=== PATIENT | male | born 2000 | race Caucasian/White ===

== ENCOUNTER 2020-01-01 17:39 | Emergency (ER) | payer SELFPAY ==
[~2020-01-01] VITALS: Ht 198.1 cm; Wt 90.7 kg
[2020-01-01] MEDS ORDERED: DOXYCYCLINE HY100 MG PO (18:29)
== END 2020-01-01 19:01 | disposition home or self-care (01) ==
LOC: ED 17:39
DX: L03.116 Cellulitis of left lower limb (principal); B95.8 Unspecified staphylococcus as the cause of diseases classified elsewhere
CPT/HCPCS: 99283

== ENCOUNTER 2020-10-20 07:14 | Emergency (ER) | payer OTHER, BC ==
[~2020-10-20] VITALS: Ht 193 cm; Wt 86.2 kg
[~2020-10-20 07:14] MED LIST: DOXYCYCLINE HY100 MG PO
[2020-10-20] MEDS ORDERED: NORCO 7.5-3251 EACH PO (08:07)
== END 2020-10-20 08:15 | disposition home or self-care (01) ==
LOC: ED 07:14
DX: S82.832A Other fracture of upper and lower end of left fibula, initial encounter for closed fracture (principal); W22.8XXA Striking against or struck by other objects, initial encounter
CPT/HCPCS: 73590; 73610; 99283-25; A9270

== ENCOUNTER 2023-07-06 02:24 | Emergency (ER) | payer OTHER ==
[~2023-07-06] VITALS: Ht 193 cm; Wt 86.2 kg
--- OUTSIDE RECORDS SUMMARY | ~2023-07-06 | XMS | Continuity of Care Document ---
Demographics + + + | Address | [address] | | | [place] [address] | + + + | Preferred Language | Unknown | + + + | Marital Status | Never | + + + | Pentecostal Affiliation | Unknown | + + + | Race | White | + + + | Ethnic Group | Unknown | + + + Author + + + | Author | [facility] | + + + | Organization | [facility] | + + + | Address | [address] | | | [place] [address] | + + + | Phone | | + + + Care Team Providers + + + + | Care Credit Administrator Name | Role | Phone | + + + + Unavailable | Unavailable | + + + + Allergies No information. Encounters No information. Functional Status No information. Immunizations No information. Medications No information. Problems + + + + | date | description | facility | + + + + | 2020-10-20 07:14 | Pain in right leg | [facility] | | | [facility] | + + + + | 2020-10-20 07:14 | Other fracture of upper and | [facility] | | | lower end of left fibula, | [facility] | | | initial encounter for | | | | closed fracture | | + + + + | 2020-10-20 07:14 | Striking against or struck | [facility] | | | by other objects, initial | [facility] | | | encounter | | + + + + Procedures No information. Results/Labs No information. Social History No information. Vital Signs No information."
--- OUTSIDE RECORDS SUMMARY | ~2023-07-06 | XMS | Continuity of Care Document ---
Demographics + + + | Address | [address] | | | [place] [address] | + + + | Preferred Language | Unknown | + + + | Marital Status | Never | + + + | Temple Affiliation | Unknown | + + + | Race | White | + + + | Ethnic Group | Unknown | + + + Author + + + | Author | [facility] | + + + | Organization | [facility] | + + + | Address | [address] | | | [place] [address] | + + + | Phone | | + + + Care Team Providers + + + + | Care Administration Vice President Name | Role | Phone | + [...]
[~2023-07-06 02:24] MED LIST changes: +NORCO 7.5-3251 EACH PO
[2023-07-06 02:37] LABS: BASOPHILS 0.6 % (0-2); HEMATOCRIT 45.8 % (35.0-50.0); HEMOGLOBIN 14.9 g/dL (12.0-18.0); LYMPHOCYTES 40.7 % (24-44); MCH 29.2 (27-36); MCHC 32.5 g/dl (30-36); MONOCYTES 7.9 % (0-12); NEUTROPHILS 47.8 % (39-80); PLATELET COUNT 295 K/uL (140-440); RBC 5.09 M/ul (4.3-5.7); RDW 13.2 (10.5-15.0)
[2023-07-06 02:50] LABS: ALBUMIN 4.4 g/dL (3.4-5.0); ALBUMIN/GLOBULIN RATIO 1.42 (1.1-2.4); ANION GAP 16.1 (7-21); BILIRUBIN, TOTAL 0.5 ng/dL (0.2-1.0); BUN/CREATININE RATIO 15.68 (6.0-28.6); CALCIUM 8.9 mg/dL (8.5-10.1); CREATININE, SERUM 1.02 mg/dL (0.70-1.30); POTASSIUM 3.1 mmol/L (3.5-5.1); PROTEIN, TOTAL 7.5 g/dL (6.4-8.2)
[2023-07-06 05:59] VITALS: BP 126/83
[2023-07-08] MEDS ORDERED: BUTALB-ACETAMI1 EACH PO (17:24)
[2023-07-08] MEDS ORDERED: ONDANSETRON ODT8 MG PO (18:48)
== END 2023-07-06 06:27 | disposition short-term general hospital (02) ==
LOC: ED 02:24
PROVIDERS: Internal Medicine
DX: S00.03XA Contusion of scalp, initial encounter (principal); S06.6X1A Traumatic subarachnoid hemorrhage with loss of consciousness of 30 minutes or less, initial encounter; Y04.2XXA Assault by strike against or bumped into by another person, initial encounter
CPT/HCPCS: 36415; 70450; 72125; 80053; 85025; G0480; J0690; J2270; J2405; J2765; J3480

== ENCOUNTER 2025-08-26 05:55 | Day surgery (SDC) | payer BC, OTHER ==
[~2025-08-26] VITALS: Ht 195.6 cm; Wt 87.0 kg
[~2025-08-26 05:55] MED LIST changes: +BUTALB-ACETAMI1 EACH PO; +LACTATED RINGER'S 1,000 ML IV SCH; +ONDANSETRON ODT8 MG PO
[2025-08-26 06:12] VITALS: BP 125/76
[2025-08-26] MEDS ORDERED: HEParin SOD (PORCINE) 5,000 UNIT/ML SDV SUB-Q SCH (07:00)
[2025-08-26] MEDS ORDERED: LIDOCAINE HCL 1% 5 ML SDV INJ ONE (07:00)
[2025-08-26] MEDS ORDERED: IBLOOD GLUCOSE TEST STRIP 1 EA TEST VI PRN (07:00)
[2025-08-26] MEDS ORDERED: CEFAZOLIN SODIUM 2 GM in SODIUM CHLORIDE 0.9% 100 ML IV SCH (07:00)
[2025-08-26] MEDS ORDERED: MIDAZOLAM HCL 2 MG/2 ML VIAL ONE (07:13)
[2025-08-26] MEDS ORDERED: SUGAMMADEX SODIUM 200 MG/2 ML ML ONE (07:13)
[2025-08-26] MEDS ORDERED: fentaNYL citrate 100 MCG/2 ML VIAL ONE (07:13)
[2025-08-26] MEDS ORDERED: ROCURONIUM BROMIDE 50 MG/5 ML SYR ONE (07:13)
[2025-08-26] MEDS ORDERED: LIDOCAINE HCL 1% 30 ML SDV ONE (07:20)
[2025-08-26] MEDS ORDERED: SEVOFLURANE 250 ML BTL ONE (07:34)
[2025-08-26] MEDS ORDERED: ACETAMINOPHEN 1,000 MG/100 ML VIAL ONE (07:35)
[2025-08-26] MEDS ORDERED: DEXAMETHASONE SOD PHOS 4 MG/ML VIAL ONE (07:41)
[2025-08-26] MEDS ORDERED: KETOROLAC TROMETHAMINE 30 MG/ML VIAL ONE (07:41)
[2025-08-26] MEDS ORDERED: LACTATED RINGER'S 1,000 ML IV ONE (07:45)
--- NOTE | 2025-08-26 09:03 | NUR ---
08/26/25 0903 Blossom Herrera 0855- PT PRESENTS TO PACU, SEMI KUO POSITION, NON REACTIVE TO STIMULUS. OPA IN PLACE, BREATHING EVEN AND NON LABORED, O2 AT 6L PER MASK. LR INFUSING TO RH IV, DRESSING TO RIGHT GROIN, CDI. ABD SOFT, NON DISTENDED. ALL MONITORS IN PLACE.
[2025-08-26] MEDS ORDERED: ACETAMINOPHEN500 MG PO (09:12)
[2025-08-26] MEDS ORDERED: IBUPROFEN600 MG PO (09:12)
[2025-08-26] MEDS ORDERED: OXYCODON-ACETA1 EAC2 PO (09:12)
[2025-08-26] MEDS ORDERED: OXYCODONE/APAP 7.5/325 TAB PO PRN (09:15)
[2025-08-26] MEDS ORDERED: NALOXONE HCL 0.4 MG SYR IV PRN (09:15)
[2025-08-26] MEDS ORDERED: LACTATED RINGER'S 1,000 ML IV SCH (09:15)
[2025-08-26] MEDS ORDERED: IBUPROFEN 600 MG TAB PO PRN (09:15)
[2025-08-26] MEDS ORDERED: ACETAMINOPHEN 500 MG TAB PO PRN (09:15)
[2025-08-26 09:35] VITALS: BP 105/70
--- NOTE | 2025-08-26 09:35 | NUR ---
PT ARRIVED BACK TO DS ON RA, AAOX3, ANSWERING QUESTIONS APPROPRIATELY, AND ABLE TO MAKE HIS NEEDS KNOWN. VS TAKEN. IV SITE ASSESSED. REPORT RECIEVED FROM CLIENT CARE SPECIALIST. SURGICAL SITE VISUALIZED WITH CLIENT CARE SPECIALIST. NOTED SMALL AMT OF SHOWING ON DRSG, OTHERWISE CDI. PT DENIES NAUSEA AND REPORTS PAIN AT 2-3/10 IN SURGICAL SITE. PT REPORTS THIS TO BE TOLERABLE FOR HIM AND DECLINES NEED FOR PAIN RELIEF AT THIS TIME. PT SIG OTHER AT BEDSIDE. ALL QUESTIONS ANSWERED. PT PROVIDED WITH ICE WATER, CRACKERS, AND PUDDING. BED IN LOW POSITION, WHEELS LOCKED, BILAT RAILS IN PLACE, AND CALL LIGHT WITHIN PT REACH.
[2025-08-26 10:30] VITALS: BP 133/83
--- NOTE | 2025-08-26 10:37 | NUR ---
1020-INTO PTS ROOM FOR ROUTINE REASSESSMENT. PT REPORTS URGE TO VOID. IV SITE SL'D. PT ASSISTED TO EOB AND EDUCATION PROVIDED ON USE OF HAND TO SURGICAL SITE TO SUPPORT INCISION. PT VERBALIZED AND DEMONSTRATED UNDERSTANDING WITH STANDING AND AMBULATION ACROSS SOLIS TO RESTROOM WITH RN SBA FOR SAFETY. PT ABLE TO VOID APPROX 175 ML OF CLR, PALE, YELLOW URINE. PT AMBULATED BACK TO ROOM WITH RN SBA FOR SAFETY. SURGICAL SITE VISUALIZED POST AMBULATION AND NO INCREASED DRAINAGE NOTED ON DRSG. PT SITTING ON EOB WITH SIG OTHER, PERSONAL BELONGINGS, AND CALL LIGHT WITHIN REACH. SIG OTHER HELPING PT TO DRESS FOR DISCHARGE. 1025-VS TAKEN. IV SITE ASSESSED. PT DENIES NAUSEA WHEN ASKED AND HAS TOLERATED PO FOOD AND FLUIDS WITHOUT ISSUES NOTED OR REPORTED. 1030-PT REPORTS INCREASED PAIN WITH AMBULATION AND MOVEMENT. PT RATING PAIN AT 6/10 AND REQUESTING PAIN MEDICATION. 1037-PO PAIN MEDICATION GIVEN PER EMAR.
[2025-08-26] MEDS ORDERED: SEVOFLURANE 250 ML BTL INH ONE (11:06)
--- NOTE | 2025-08-26 11:15 | NUR ---
1105-INTO PTS ROOM FOR PAIN REASSESSMENT AND DC EDUCATION. PT RATES PAIN AT 4/10 IN SURGICAL SITE AND REPORTS THIS TO BE TOLERABLE AND DECLINES NEED FOR FURTHER PAIN INTERVENTIONS AT THIS TIME. PT SIG OTHER AT BEDSIDE. PT PROVIDED WITH VERBAL AND WRITTEN DISCHARGE EDUCATION WELL RX HARD COPY. PT VERBALIZED UNDERSTANDING AND ALL QUESTIONS WERE ANSWERED. 1115-PT SIG OTHER LEFT TO PULL CAR AROUND TO FRONT OF HOSPITAL FOR PTS DISCHARGE. IV REMOVED. TIP APPEARS INTACT AND PRESSURE DRSG APPLIED WITH GAUZE AND COBAN.
--- NOTE | 2025-08-26 11:20 | NUR ---
PT DISCHARGED FROM DS VIA WC TO PASSENGER SIDE OF [employer] VEHICLE. ALL PERSONAL BELONGINGS TAKEN WITH PT.
--- NOTE | 2025-08-28 13:51 | OR ---
[facility] [address], [place] [address] Signed DATE OF OPERATION: 08/26/2025 SURGEON: Geronimo Dominique MD PREOPERATIVE DIAGNOSIS: Right inguinal hernia. POSTOPERATIVE DIAGNOSIS: Right incarcerated inguinal hernia with omentum. PROCEDURE: Repair of right inguinal hernia (incarcerated) with implantation of Prolene mesh underlay technique. ANESTHESIA: General LMA and local 10 mL of 0.25% Marcaine with epinephrine. INDICATION: This 25-year-old white man works at [employer] and is a patient of MARITZA Chaudhari. He has had progressive enlargement of a right inguinal hernia over time increasingly uncomfortable for him at this point. Examination shows a bulky hernia in the right groin area. Both testicles are normal. There is no sign of left-sided hernia. He has no special risks factors for hernia development, specifically no constipation, chronic cough or urinary outlet obstructive symptoms. He is admitted at this time to undergo right inguinal hernia repair with probable implantation of mesh. He understands the risk of bleeding, infection, and recurrence. FINDINGS: A large thick indirect hernia sac was noted. Within it was nonreducible omentum. It was ultimately found that he had omental adhesion to the distal portion of the indirect sac. Once freed, the omentum was reduced well. The hernia sac itself was quite chronically thickened. Most of the sac was excised. The distal portion was left in situ. The neck of the sac was secured and amputated. Implantation of Prolene mesh in an underlay technique was undertaken supporting the floor of the canal itself. Cord structures were found to be normal. Specific identification of the ilioinguinal nerve was not forthcoming, but there is no known entrapment of any nerve in repair. DESCRIPTION OF PROCEDURE: The patient was brought to the operating room, given a general anesthetic by LMA technique. Preoperative antibiotic Ancef was given. Sequential compression device Electronically Signed By: GERONIMO DOMINIQUE MD 08/28/25 1351 PATIENT NAME: OVIDIO WEISS OPERATIVE REPORT DATE OF : [birth year] REPORT #: [id number] PHYSICIAN: GERONIMO DOMINIQUE MD PCP: MONICA BARDALES PAC REPORT IS CONFIDENTIAL AND NOT TO BE RELEASED WITHOUT AUTHORIZATION [facility] [address], [place] [address] Signed stockings were used. The lower abdomen was clipped and prepared with chlorhexidine solution and draped sterilely. A small incision was made cephalad to the pubic tubercle on the right. Dissection carried through the dermis and subcutaneous tissue with electrocautery. External oblique was incised along its fibers revealing the underlying cord structure, which was surprisingly bulky. No distinct ilioinguinal nerve was identified and cremasteric muscle fiber was impressively thickened. Using blunt and electrocautery dissection, the cord was freed from the floor of the canal and encircled with a [place] drain. The floor itself appeared rather attenuated, though not frankly a hernia. The thickened muscular fibers around the spermatic cord were divided transversely with electrocautery revealing the underlying hernia sac. The hernia sac was bulky and absolutely contained something. It was dissected free from the cord, opened and found within it was the omentum. The omentum was tethered to the distal portion by adhesions. It was withdrawn and the adhesive connection divided. This allowed for the hernia to be fully reduced into the peritoneal cavity. The proximal 2/3 of the sac was dissected free from the cord with all due care causing no harm to cord structures at all. Once the neck of the hernia sac was well identified, it was secured with 2-0 silk sutures and redundant hernia sac amputated. The distal portion of the sac was allowed to remain with the cord. The attenuated fibers of the fascia of the transversalis were incised with electrocautery. The properitoneal fat was bluntly . An Allis clamp was applied to the tendon of the transversus abdominis and a segment of Prolene ProGrip mesh was cut to an elliptical configuration and secured in an underlay technique with interrupted 2-0 Prolene sutures. A defect was cut in the graft to accommodate the cord structures and the tail of the graft was secured laterally around the cord with all due care. Inspection for an ilioinguinal nerve branch showed no sign of such finding. 10 mL of 0.25% Marcaine with epinephrine was injected locally. The cord was placed in the canal and the external oblique was reapproximated with running 2-0 Vicryl. Jayda layer was reapproximated similar and the skin closed with running subcuticular 3-0 Vicryl. Steri-Strips were applied as was an Acticoat dressing. The patient tolerated procedure well and ultimately extubated and transferred to the recovery room in good condition having suffered no complication. Sponge, needle, and instrument counts reported as correct x3. Geronimo Dominique MD Electronically Signed By: GERONIMO DOMINIQUE MD 08/28/25 1351 PATIENT NAME: OVIDIO WEISS OPERATIVE REPORT DATE OF : [birth year] REPORT #: [id number] PHYSICIAN: GERONIMO DOMINIQUE MD PCP: MONICA BARDALES PAC REPORT IS CONFIDENTIAL AND NOT TO BE RELEASED WITHOUT AUTHORIZATION [facility] [address] [place] [address] Signed /JANET /[id number] cc: MARITZA Chaudhari Copies: ~ Electronically Signed By: GERONIMO DOMINIQUE MD 08/28/25 1351 PATIENT NAME: OVIDIO WEISS OPERATIVE REPORT DATE OF : [birth year] REPORT #: [id number] PHYSICIAN: GERONIMO DOMINIQUE MD PCP: MONICA BARDALES PAC REPORT IS CONFIDENTIAL AND NOT TO BE RELEASED WITHOUT AUTHORIZATION
== END 2025-08-26 11:20 | disposition home or self-care (01) ==
LOC: DS 05:55
PROVIDERS: ATTEND Surgery
PROC: 0YU50JZ Supplement Right Inguinal Region with Synthetic Substitute, Open Approach (ICD-10-PCS; principal; 2025-08-26 07:30)
DX: K40.30 Unilateral inguinal hernia, with obstruction, without gangrene, not specified as recurrent (principal)
CPT/HCPCS: 00830; C1781; J0131; J0688; J1100; J1644; J1885; J2250; J2405; J2704; J3010; J3490; J7121